=== PATIENT | male | born 1985 | race African-American/Black ===

== ENCOUNTER 2017-06-20 16:59 | Inpatient (IN) | payer SELFPAY ==
--- NOTE | 2017-06-20 19:06 | ULT ---
GALLBLADDER ULTRASOUND: 06/20/17 INDICATION: Epigastric pain. FINDINGS: There are echoes of the gallbladder lumen indicating sludge. Gallbladder wall is not abnormally thic kened. No focal hepatic lesion. No abnormal biliary ductal dilatation. There is minimal free fluid i nterposed between the gallbladder, liver, and right kidney. IMPRESSION: 1. Low level echoes of the gallbladder lumen indicating sludge and/or nonshadowing cholelithias is. No definitive evidence for acute cholecystitis. 2. Minimal free fluid of the abdomen. Nonspecific. Correlate clinically. POS: [facility]
[2017-06-20] MEDS ORDERED: MORPHINE 10 MG/ML SYRINGE IV PRN ×2 (19:38→22:07)
[2017-06-20] MEDS ORDERED: hydrALAZINE 20 MG/ML VIAL SLOW IVP PRN (19:38)
[2017-06-20] MEDS ORDERED: Dextrose 5% in Water 1,000 ML IV PRN (19:38)
[2017-06-20] MEDS ORDERED: Ondansetron ODT 4 MG TAB PO PRN (19:38)
[2017-06-20] MEDS ORDERED: Dextrose 50% Abboject 50 ML SYRINGE SLOW IVP PRN (19:38)
[2017-06-20] MEDS ORDERED: Morphine 4 MG/ML VIAL SLOW IVP PRN ×2 (19:38→21:27)
[2017-06-20] MEDS ORDERED: Ondansetron HCl/PF 4 MG/2 ML Vial IVP PRN (19:38)
[2017-06-20] MEDS ORDERED: Pantoprazole 40 MG VIAL ONE (19:43)
[2017-06-20] MEDS ORDERED: Ketorolac Tromethamine 30 MG/ML VIAL ONE (19:43)
[2017-06-20] MEDS ORDERED: Morphine 10 MG/ML VIAL ONE (19:45)
[2017-06-20] MEDS ORDERED: Lactated Ringer's 1,000 ML IV SCH (19:45)
[2017-06-20] MEDS: Lactated Ringer's 1,000 ML IV SCH ×2 (21:02→21:58)
[2017-06-20] MEDS: Piperacillin/Tazobactam 3.375 GM in Sodium Chloride 0.9% 100 ML IVPB SCH (21:02)
[2017-06-20] MEDS: Enoxaparin Sodium 40 MG/0.4 ML SYRINGE SC SCH (21:57)
[2017-06-20] MEDS: Pantoprazole 40 MG VIAL IVP SCH (21:59)
[2017-06-20] MEDS: Acetaminophen 1,000 MG in Premix Bag 1 BAG IVPB SCH (23:47)
[2017-06-20] MEDS: Ketorolac Tromethamine 30 MG/ML VIAL IVP SCH (23:48)
[2017-06-21 01:13] VITALS: BMI 20.5
[2017-06-21] MEDS: Piperacillin/Tazobactam 3.375 GM in Sodium Chloride 0.9% 100 ML IVPB SCH ×2 (02:36→19:20)
--- NOTE | 2017-06-21 02:49 | HP ---
HISTORY OF PRESENT ILLNESS: Mo Penny is a 31-year-old black male from [place]. He has had 7 days of epigastric pain, back radiation. He was seen in [place] several times, given cocktails and sent home, he reported today who was having severe epigastric pain, back radiation. He underwen t a CAT scan of the abdomen and pelvis revealing pericholecystic fluid and pelvic fluid, but no othe r significant findings. He was noted to have an incidental finding nonenhancing 1.5 cm lesion withi n the liver, incompletely assessed, would need to follow up MRI or CT scan mass protocol. Patient's CBC, basic metabolic, liver function tests are normal. White count is 9, hemoglobin 14, BUN 9.5, c reatinine 0.9, bilirubin, AST, ALT, lipase are normal. Patient underwent ultrasound at this facilit y, noting a sludge, possible stones, no bile duct dilatation, otherwise unremarkable. Patient is on Nexium daily for GERD. He is compliant daily. He does not take NSAIDs. He has never had an upper endoscopy. He has been on Nexium for the past year. TOBACCO: 3-4 cigarettes a day. ALCOHOL: Rarely. ALLERGIES: None. MEDICATIONS: Nexium daily for GERD. PAST SURGICAL HISTORY: Noncontributory. PAST MEDICAL HISTORY: GERD. No history of EGD. SOCIAL HISTORY: Patient is single. He has one child. He works as self-employed woodworking. REVIEW OF SYSTEMS: [employer] noncontributory. He denies NSAID use. PHYSICAL EXAMINATION: VITAL SIGNS: Blood pressure 123/92, heart rate 55, respiratory rate 18. HEAD, EYES, EARS, NOSE, AND TNROAT: Unremarkable. LUNGS: Clear to auscultation. CARDIAC: Regular rate and rhythm without murmur or gallop. ABDOMEN: Flat, nondistended. Diminished bowel sounds. Patient has extreme tenderness in epigastri um with guarding and rebound. I initially thought he had a rigid abdomen; but on re-exam with slow breathing, his lower abdomen is soft. ASSESSMENT AND PLAN: 1. Abdominal pain of uncertain etiology. He does have gallstones. He is very tender in his epigas trium and right upper quadrant. I would recommend EGD, laparoscopic cholecystectomy and indicated p rocedures based on operative findings. He understands risks of infection, bleeding, visceral and bi liary injury, possibly open operation and consents. 2. Reflux, on Nexium for the past year. No history of NSAID use. Minimal tobacco use.
[2017-06-21] MEDS: Lactated Ringer's 1,000 ML IV SCH (03:45)
[2017-06-21] MEDS: Ketorolac Tromethamine 30 MG/ML VIAL IVP SCH ×2 (05:42→11:02)
[2017-06-21] MEDS: Acetaminophen 1,000 MG in Premix Bag 1 BAG IVPB SCH (05:42)
[2017-06-21 05:45] LABS: #Basophils 0.1 thou/uL (0.0-0.2); #Eosinphils 0.1 thou/uL (0.0-0.7); #Lymphocytes 3.8 thou/uL (1.20-3.40); #Monocytes 0.6 thou/uL (0.11-0.59); #Neutrophils 3.6 thou/uL (1.40-6.50); %Basophils 1.2 % (0.0-1.0); %Eosinophils 1.2 % (0.0-10.0); %Lymphocytes 46.4 % (21.0-51.0); %Monocytes 7.3 % (0.0-10.0); Hematocrit 38.1 % (42.0-52.0); Mean Platelet Volume 6.7 fL (7.4-10.4); Red Blood Cell (RBC) Count 3.71 mill/uL (4.70-6.10); White Blood Cell (WBC) Count 8.3 thou/uL (4.8-10.8)
[2017-06-21 06:06] LABS: ALT (SGPT) 8 U/L (8-55); AST (SGOT) 13 U/L (5-34); Alkaline Phosphatase 44 U/L (40-150); Anion Gap 8 mmol/L (10-20); BUN (Urea Nitrogen) 12 mg/dL (8.9-20.6); Bilirubin, Total 0.5 mg/dL (0.2-1.2); Calc. Creatinine Clearance 91 mL/min (70-130); Calcium 8.3 mg/dL (7.8-10.44); Carbon Dioxide 26 mmol/L (22-29); Chloride 108 mmol/L (98-107); Estimated GFR-MDRD Greater than 90; Protein, Total 5.1 g/dL (6.0-8.3)
[2017-06-21] MEDS ORDERED: Midazolam HCl 2 mg/2 ml Vial ONE ×2 (06:47→07:24)
[2017-06-21] MEDS ORDERED: Fentanyl 100 MCG/2 ML VIAL ONE (06:47)
[2017-06-21] MEDS ORDERED: Bupivacaine/Epinephrine 0.25% 30 ML VIAL ONE (07:26)
[2017-06-21] MEDS ORDERED: Lidocaine 1% PF 5 ML VIAL ONE (07:59)
[2017-06-21] MEDS ORDERED: Metoclopramide HCl 10 MG/2 ML VIAL ONE (07:59)
[2017-06-21] MEDS ORDERED: Propofol 200 MG/20 ML VIAL ONE (07:59)
[2017-06-21] MEDS ORDERED: Ondansetron HCl/PF 4 MG/2 ML Vial ONE (07:59)
[2017-06-21] MEDS ORDERED: Succinylcholine Chloride 20 MG/ML 10 ml SYRINGE FS ONE (07:59)
[2017-06-21] MEDS ORDERED: Glycopyrrolate 0.2 MG/ML 5 ML SYRINGE ONE (07:59)
[2017-06-21] MEDS ORDERED: Dexamethasone 20 MG/5 ML VIAL ONE (07:59)
[2017-06-21] MEDS ORDERED: FLU VACC QS2017-18 36 mo. & older 0.5 ML SYRINGE IM ONE (09:00)
--- NOTE | 2017-06-21 09:08 | OP ---
DATE OF PROCEDURE: 06/21/2017 PREOPERATIVE DIAGNOSES: Epigastric pain, back radiation, gastroesophageal reflux disease, compliant on Nexium once a day, cholelithiasis, cholecystitis. POSTOPERATIVE DIAGNOSES: Epigastric pain, back radiation, gastroesophageal reflux disease, complian t on Nexium once a day, cholelithiasis, cholecystitis. PROCEDURES: Esophagogastroduodenoscopy noting prepyloric superficial ulceration, mild proximal lee ritis, otherwise normal. Laparoscopic cholecystectomy. Laparoscopic evaluation of the abdominal ca vity noting normal terminal ileum, appendix, cecum, stomach, duodenum, pylorus, and liver. Note, carolin ríos had an abnormal finding of liver on CAT scan, we will need a CT scan liver mass protocol. SURGEON: Ibrahima Acevedo M.D. ANESTHESIA: General. Local 0.5% Marcaine, 30 mL mixed with 2% Xylocaine, 10 mL. DESCRIPTION OF THE PROCEDURE: Patient taken to the operating room where under general anesthesia, e ndoscope placed per os under direct visualization and using air insufflation passed throughout the e sophagus into the stomach through the pylorus into the duodenum and duodenum appeared to be normal. Pylorus was normal. Prepyloric ulceration was noted superficial. There was no evidence of bleedin g. Scope withdrawn noting normal antrum, body of the stomach. Otherwise, retroflexion revealed roz e mild proximal gastritis. The scope withdrawn noting normal GE junction, normal distal esophagus, normal esophagus. Abdomen was then prepared with ChloraPrep, draped in routine fashion. Local anes thetic infiltrated into skin and subcutaneous tissue about each port site. Infraumbilical incision made and pneumoperitoneum to 15 mmHg obtained with the Veress needle, replacing it with a 5 port. V ideo laparoscope inserted. Right subxiphoid incision made and 11 port placed. Right subcostal inci jennifer made, midclavicular anterior axillary lines and 5 ports placed. Liver appeared to be normal. No masses were noted in either lobe. Fundus of the gallbladder grasped and reflected cephalad. Inf undibulum grasped and reflected laterally. Cystic artery and duct dissected free. Critical view ob tained with pericholecystic dissection 2/3rds of the cystic plate. Cystic artery and duct doubly cl ipped proximally, divided, and gallbladder dissected free from the liver bed obtaining good hemostas is prior to division of final peritoneal attachments. Gallbladder and contents removed. Abdominal cavity inspected. Appendix, right colon and transverse colon noted be normal. Terminal ileum was i nspected for the terminal 4 feet noted to be normal. There was no diverticulum. There was not any abnormal free fluid in the abdominal cavity. There were no inflammatory changes. Stomach, proximal ly body, antrum, duodenum inspected and noted to be normal. Pneumoperitoneum evacuated. All instru ments removed and all skin incisions approximated with interrupted subdermal 4-0 Monocryl and DermaG lue applied.
--- NOTE | 2017-06-21 09:48 | DIS ---
DATE OF ADMISSION: 06/20/2017 DATE OF DISCHARGE: 06/21/2017 DISCHARGE DIAGNOSES: 1. Cholecystitis, cholelithiasis, gallbladder sludge. 2. Peptic ulcer disease, prepyloric ulcer, superficial. 3. Reflux, compliant on Nexium once a day. PROCEDURES THIS HOSPITALIZATION: 1. CT scan of abdomen and pelvis, liver density. 2. CT scan mass protocol performed prior to discharge. 3. Ultrasound; gallbladder sludge. HISTORY: A 31-year-old black male with abdominal pain for a week, intractable. He is compliant wit h once a day, Nexium for GERD for the last year. He has not taken NSAIDs. He has not had any nause a or vomiting. He has been in [facility] on 3 different occasions with persistent pain, on this o ccasion transferred to [facility] where I was called and evaluated him, he was admitted. H e had an acute epigastric pain with back radiation. Bile duct caliber was not normal. Liver functi on tests normal. Patient was given antibiotics, analgesics overnight, parenteral b.i.d. PPIs. He w as taken to the operating room for upper endoscopy revealing prepyloric ulcer superficial. Laparosc opy undertaken with normal appendix, colon, terminal ileum and liver visualized. Laparoscopic karina cystectomy undertaken. Postoperatively, he was treated with Nexium. He is being discharged home wi th Nexium twice a day and Carafate a.c. and at bedtime. Follow up in my office in 2-3 weeks. Diet and activity as tolerated, avoidance of NSAIDs. He was s ent home on Tylenol, Ultram p.r.n. pain. No activity restrictions. Activity as tolerated. Shower and bathe whenever.
[2017-06-21] MEDS ORDERED: traMADol HCl 50 MG TAB PO PRN (09:52)
[2017-06-21] MEDS: traMADol HCl 50 MG TAB PO PRN ×2 (11:01→16:58)
[2017-06-21] MEDS: Pantoprazole 40 MG VIAL IVP SCH ×2 (11:02→20:39)
--- NOTE | 2017-06-21 12:57 | CT ---
CT OF THE ABDOMEN WITH AND WITHOUT IV CONTRAST: INDICATION: Liver mass. COMPARISON: Prior CT of the abdomen and pelvis dated 05/03/15, 03/23/16, 06/18/17, 06/20/17 from [facility]. FINDINGS: There is a 1.4 cm peripheral nodular discontinuous enhancing lesion with near-complete fadeout to ba ckground on the delayed phase images seen within segment 5 of the right hepatic lobe just anterior t o the right main portal vein. This lesion likely was present on the comparison in 2015 and is rough ly similar in size to a comparison in 2016 and is most consistent with a small hemangioma. The gall bladder is surgically absent. There is mild intrahepatic biliary ductal dilatation. There are smal l bilateral pleural effusions and bibasilar atelectasis. There is a small amount of free air seen w ithin the anterior aspect of the upper abdomen. There is subcutaneous gas consistent with the patie nt's recent cholecystectomy involving the anterior abdominal wall. There are tiny right renal corti vipul calcifications. The spleen, pancreas, adrenal glands, and left kidney appear within normal limi ts. No acute osseous abnormality is evident. IMPRESSION: 1. Small focal lesion within the right hepatic lobe demonstrates some peripheral discontinuous nodu lar enhancement with near-complete fadeout to background on the delayed phase images. This lesion i n retrospect review of the 2014 examination was likely present. This lesion is present on the 2016 examination and is similar in size measuring up to 1.4 cm. This is likely reflective of a small hem angioma. 2. Recent cholecystectomy. POS: [facility]
[2017-06-21] MEDS ORDERED: Piperacillin/Tazobactam 3.375 GM, Admixture Fee 1 EACH in Sodium Chloride 0.9% 100 ML IVPB SCH (14:00)
[2017-06-21] MEDS ORDERED: Ketorolac Tromethamine 30 MG/ML VIAL IVP PRN (15:12)
[2017-06-21] MEDS ORDERED: ISOVUE-370 76%-LOCM 1 ML ONE (15:43)
[2017-06-21] MEDS: Sucralfate 1 GM TAB PO SCH ×3 (16:52→20:39)
[2017-06-21] MEDS: Acetaminophen 500 MG TAB PO PRN (16:58)
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
[2017-06-21] MEDS: Enoxaparin Sodium 40 MG/0.4 ML SYRINGE SC SCH (20:39)
[2017-06-22] MEDS: traMADol HCl 50 MG TAB PO PRN (04:19)
[2017-06-22 05:15] LABS: ALT (SGPT) 62 U/L (8-55); AST (SGOT) 101 U/L (5-34); Alkaline Phosphatase 66 U/L (40-150); Bilirubin, Direct 0.2 mg/dL (0.1-0.3); Bilirubin, Total 0.4 mg/dL (0.2-1.2); Protein, Total 5.5 g/dL (6.0-8.3)
[2017-06-22 05:18] LABS: #Basophils 0.1 thou/uL (0.0-0.2); #Eosinphils 0.1 thou/uL (0.0-0.7); #Lymphocytes 3.8 thou/uL (1.20-3.40); #Neutrophils 6.9 thou/uL (1.40-6.50); %Basophils 0.9 % (0.0-1.0); %Eosinophils 0.5 % (0.0-10.0); %Monocytes 8.2 % (0.0-10.0); Hematocrit 37.9 % (42.0-52.0); Mean Platelet Volume 8.2 fL (7.4-10.4); Red Blood Cell (RBC) Count 3.76 mill/uL (4.70-6.10); White Blood Cell (WBC) Count 11.8 thou/uL (4.8-10.8)
[2017-06-22] MEDS: Sucralfate 1 GM TAB PO SCH (06:32)
[2017-06-22] MEDS: Pantoprazole 40 MG VIAL IVP SCH (09:01)
[2017-06-22] MEDS: Acetaminophen 500 MG TAB PO PRN (09:03)
[2017-06-22 09:27] VITALS: BP 117/72; TEMP 97.7
== END 2017-06-22 12:05 | disposition home or self-care (01) | DRG 419 ==
LOC: ERS 16:59 → SURG A 19:00 → OBSVTOIN 19:00
PROVIDERS: ADMIT Specialist; ATTEND Specialist
PROC: 0DJ08ZZ Inspection of Upper Intestinal Tract, Via Natural or Artificial Opening Endoscopic (ICD-10-PCS; principal; 2017-06-20)
PROC: 0FT44ZZ Resection of Gallbladder, Percutaneous Endoscopic Approach (ICD-10-PCS; 2017-06-20)
DX: K80.10 Calculus of gallbladder with chronic cholecystitis without obstruction (principal); K25.9 Gastric ulcer, unspecified as acute or chronic, without hemorrhage or perforation; D18.03 Hemangioma of intra-abdominal structures; K21.9 Gastro-esophageal reflux disease without esophagitis; F17.210 Nicotine dependence, cigarettes, uncomplicated; K29.70 Gastritis, unspecified, without bleeding
CPT/HCPCS: 36415; 74170; 76705; 80053; 80076; 85025; 88304; 90471; 90682; 96361; 96374; 96375; 96376; C9113; G0008; J0131; J1100; J1650; J1885; J2001; J2250; J2270; J2405; J2543; J2704; J2765; J3010; J7050; Q2036

== ENCOUNTER 2021-02-19 15:05 | Emergency (ER) | payer OTHER, SELFPAY ==
[~2021-02-19 15:05] MED LIST: Iopamidol 370 76% 50 ML VIAL FS ONE; Iopamidol-370 76% 500 ML 1 ML ONE
[2021-02-19] MEDS ORDERED: Pantoprazole 40 MG VIAL ONE ×2 (15:33→16:02)
[2021-02-19] MEDS ORDERED: Morphine 2 MG/ML VIAL ONE (15:33)
[2021-02-19] MEDS ORDERED: Ondansetron PF 4 MG/2 ML Vial ONE (15:33)
[2021-02-19 15:39] LABS: #Basophils 0.1 thou/uL (0.0-0.2); #Lymphocytes 2.7 thou/uL (1.20-3.40); #Monocytes 0.6 thou/uL (0.11-0.59); #Neutrophils 3.4 thou/uL (1.40-6.50); %Basophils 1.3 % (0.0-1.0); %Eosinophils 0.7 % (0.0-10.0); %Lymphocytes 39.4 % (21.0-51.0); %Monocytes 8.7 % (0.0-10.0); %Neutrophils 49.9 % (42.0-75.0); Hemoglobin 14.9 g/dL (14.0-18.0); Mean Corpuscular HGB CONC 32.1 g/dL (32.0-36.0); Mean Corpuscular Hemoglobin 32.4 pg (27.0-31.0); Mean Platelet Volume 6.9 fL (7.4-10.4); Platelet Count 346 thou/uL (130-400); RBC Distribution Width 12.3 % (11.5-14.5); Red Blood Cell (RBC) Count 4.61 mill/uL (4.70-6.10); White Blood Cell (WBC) Count 6.9 thou/uL (4.8-10.8)
[2021-02-19 16:02] LABS: ALT (SGPT) 16 U/L (8-55); AST (SGOT) 15 U/L (5-34); Albumin 4.4 g/dL (3.5-5.0); Alkaline Phosphatase 69 U/L (40-110); Anion Gap 12 mmol/L (10-20); BUN (Urea Nitrogen) 14 mg/dL (8.9-20.6); Bilirubin, Total 0.4 mg/dL (0.2-1.2); Calc. Creatinine Clearance 0 mL/min (70-130); Calcium 9.4 mg/dL (7.8-10.44); Carbon Dioxide 29 mmol/L (22-29); Chloride 102 mmol/L (98-107); Globulin 3.1 g/dL (2.4-3.5); Glucose 85 mg/dL (70-105); Lipase 44 U/L (8-78); Potassium 4.6 mmol/L (3.5-5.1); Protein, Total 7.5 g/dL (6.0-8.3); Sodium 138 mmol/L (136-145)
== END 2021-02-19 17:21 | disposition home or self-care (01) ==
LOC: EEVIPCON 15:05 → ERS 15:05
DX: R10.13 Epigastric pain (principal); R16.1 Splenomegaly, not elsewhere classified
CPT/HCPCS: 74177; 80053; 83690; 85025; 96374; 96375; C9113; J2270; J2405; Q9967